=== PATIENT | female | born 1960 | race African-American/Black ===

== ENCOUNTER 2016-07-05 02:57 | Emergency (ER) | payer MEDICARE, OTHER ==
[~2016-07-05] VITALS: Ht 160 cm; Wt 126.4 kg
[~2016-07-05 02:57] MED LIST: ACET1TAB40 PO; ADV25050 INHALATION; ALBU8.5H3 INH; AMMO226L TOP; ATOR40TA68 PO; CALC0.255 PO; CALC667C PO; DIPH1TAB25 PO; EPOE40002 SC; FERR325C PO; LEVEM SC; LIDO700A31 TD; METO-448 PO; MONT10TA24 PO; MULT-52 PO; NOVO3I SC; NPH,100V SC; ONDA4TAB95 PO; PANT40TA4 PO; SILD20TA PO; SUCR1TAB56 PO; TIOT18CA INHALATION
[2016-07-05 03:01] VITALS: Ht 160 cm; Wt 126.4 kg
[2016-07-05] MEDS ORDERED: IPRATROPIUM (NEB) 0.5 MG/2.5 ML AMP INH STA (04:33)
[2016-07-05] MEDS ORDERED: ALBUTEROL 0.5% (NEB) 2.5 MG/0.5 ML AMP INH STA (04:33)
[2016-07-05 05:05] VITALS: BP 156/86; PULSE 93; RESP 28; TEMP 98.6
[2016-07-05 05:18] LABS: BASOPHILS % 0.2 % (0.0-2.0); EOSINOPHILS # 0.7 10^3/ul (0.0-0.5); EOSINOPHILS % 4.2 % (0.0-7.0); HEMATOCRIT 26.1 % (37.0-47.0); HEMOGLOBIN 8.1 g/dl (12.0-16.0); LYMPHOCYTES # 1.3 10^3/ul (0.8-2.9); LYMPHOCYTES % 7.8 % (15.0-51.0); MEAN CORPUSCULAR HEMOGLOBIN 20.5 pg (29.0-33.0); MEAN CORPUSCULAR VOLUME 66.1 fl (82.0-101.0); MEAN PLATELET VOLUME 8.4 fl (7.4-10.4); MONOCYTE # 0.9 10^3/ul (0.3-0.9); MONOCYTES % 5.4 % (0.0-11.0); NEUTROPHIL # 13.6 10^3/ul (1.6-7.5); NEUTROPHILS % 82.4 % (39.0-77.0); PLATELET COUNT 304 10^3/UL (140-440); RED BLOOD COUNT 3.95 10^6/ul (4.20-5.40); UNCORRECTED WBC 16.5 10^3/ul (4.8-10.8); WHITE BLOOD COUNT 16.5 10^3/ul (4.8-10.8)
[2016-07-05 05:19] LABS: CONDITION 1; LH ANALYZER COMMENTS 1
[2016-07-05 05:28] LABS: POTASSIUM 4.6 mmol/L (3.5-5.1)
[2016-07-05] MEDS ORDERED: MUPIROCIN 2% 22 GM OINT TOP ONE (05:30)
[2016-07-05 05:31] LABS: CREATININE 1.79 mg/dl (0.44-1.00)
[2016-07-05] MEDS ORDERED: MUPI15CR9 TOP (05:31)
[2016-07-05 05:32] LABS: CALCIUM 9.6 mg/dl (8.4-10.2)
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
[2016-07-05 05:43] LABS: TROPONIN-I 0.02 ng/ml (0.00-0.12)
--- NOTE | 2016-07-05 05:44 | RADRPT ---
PROCEDURE: CHEST - 1 VIEW CLINICAL INDICATION: 56-year-old female with shortness of breath. TECHNIQUE: A single frontal AP semi-erect view of the chest was performed portably. The images we re reviewed on a PACS workstation. COMPARISON: Chest x-ray December 02, 2015 FINDINGS: The cardiomediastinal silhouette is moderately enlarged but without significant interval change. Th ere is pulmonary vascular congestion. There is a shallow inspiration. There is mild bibasilar subs egmental atelectasis. There is no definite focal consolidation. There is no evidence for pneumothor ax. The osseous structures are intact. IMPRESSION: 1. Cardiomegaly. 2. Pulmonary vascular congestion. 3. Shallow inspiration. 4. Mild bibasilar subsegmental atelectasis. .Andrea Mendez MD, Date Time Electronically viewed and signed by .Andrea Mendez MD, on 07/05/2016 05:44 .M/
== END 2016-07-05 06:54 | disposition home or self-care (01) ==
LOC: E/R 02:57
DX: I83.11 Varicose veins of right lower extremity with inflammation (principal); L98.9 Disorder of the skin and subcutaneous tissue, unspecified; J44.1 Chronic obstructive pulmonary disease with (acute) exacerbation; N17.9 Acute kidney failure, unspecified; E11.9 Type 2 diabetes mellitus without complications; I50.31 Acute diastolic (congestive) heart failure; I12.9 Hypertensive chronic kidney disease with stage 1 through stage 4 chronic kidney disease, or unspecified chronic kidney disease; N18.9 Chronic kidney disease, unspecified; E66.9 Obesity, unspecified; Z79.4 Long term (current) use of insulin
CPT/HCPCS: 71010; 80048; 84484; 85025; 93005; 94644